=== PATIENT | female | born 1970 | race Caucasian/White ===

== ENCOUNTER 2019-10-06 08:08 | Emergency (ER) | payer OTHER, SELFPAY ==
--- NOTE | 2019-10-06 08:13 | ED.GENADULT ---
HPI - General Adult General Stated complaint: Fever/Cough/Sore throat Time Seen by Provider: 10/06/19 08:23 Source: patient and RN notes reviewed Mode of arrival: ambulatory Limitations: no limitations History of Present Illness HPI narrative: This patient had onset 2 days ago on , 10/04/2019 of a cough productive of green phlegm without chest pain or shortness of breath. She is only had a sore throat whenever she coughs otherwise is not painful. Does not hurt to swallow. Her maximum temperature is been 1-1.5 this been successfully treated with Tylenol and ibuprofen. She is used OTC cough medicine which helps a little with the cough. She has not had any ear pain or drainage from the ears. She is had no nasal drainage. She is had no rashes. She has had no nausea, no vomiting, no diarrhea. She has had no hematuria, no dysuria, no pyuria. She is not a cigarette smoker and has no history of asthma. She has had no known exposure to anyone with strep throat, mono, influenza, bronchitis, pneumonia that she is aware of. She has not been traveling. Related Data Home Medications Medication Instructions Recorded Confirmed levothyroxine 50 mcg PO DAILY 10/06/19 10/06/19 metformin 1,000 mg PO DAILY 10/06/19 10/06/19 Allergies Allergy/AdvReac Type Severity Reaction Status Date / Time No Known Allergies Allergy Unverified 12/08/18 18:12 Review of Systems Review of Systems: Narrative: CONSTITUTIONAL: Denies fever, chills, or sweats. Noncontributory except as pertains to the past medical history and history of present illness. EYES: Denies visual changes, redness, or discharge. ENT: Denies rhinorrhea, congestion, sore throat, or otalgia. CARDIOVASCULAR: Denies chest pain, palpitations, or edema. RESPIRATORY: Denies cough or dyspnea. GASTROINTESTINAL: Denies abdominal pain, nausea, vomiting, or diarrhea. GENITOURINARY: Denies dysuria or hematuria. SKIN: Denies rash or itching. MUSCULOSKELETAL: Denies back pain, joint pain, or myalgia. NEUROLOGIC: Denies headache, numbness, or weakness. PSYCHIATRIC: Denies anxiety or depression. [facility] At time of signature, I have reviewed and agree with nursing past medical, surgical, social, and family history.Please see nursing chart for further information. There is no relevant family history pertinent to the presenting complaint. Exam Narrative: Exam Narrative: GENERAL: Well-appearing, well-nourished, and in no acute distress. HEAD: Normocephalic, atraumatic. EYES: PERRLA and EOMI. EARS: TM's clear bilaterally and the canals are clear. NOSE: Nares clear, no rhinorrhea or epistaxis. THROAT:Mucous membranes moist.Oropharynx is nonerythematous and the patient has no exudates. NECK: Supple. No adenopathy of the neck, supraclavicular, axillary, or inguinal areas. RESPIRATORY: No respiratory distress. Airway patent. Respirations non-labored. The lungs have rhonchi in the upper and mid lung arellano, but not the bases. There are no wheezes, no rales, no retractions, and no use of accessory muscles of respirations. The patient is not cyanotic and not dyspneic. She has a loose, wet cough during the exam. Pulse ox on room air is 99% current temperature is 99.3. HEART: Regular rate and rhythm. No murmur heard. Normal peripheral pulses. ABDOMEN: Soft, nontender, nondistended, normal active bowel sounds.No masses. No rebound or guarding, No organomegaly. No CVA pain. No pain McBurney's point. Patient has a negative Koch sign and negative Rovsing sign. There are no pulsatile masses no audible bruits. EXTREMITIES: No clubbing/cyanosis/ edema. Normal strength & range of motion. SKIN: Warm, dry.Normal color. No rash or lesions. Patient is well-nourished well-hydrated has moist mucous membranes and no tenting of the skin. NEURO: Alert and oriented. CN 2-12 grossly intact. No focal deficits. PSYCH: Normal mood and affect. Course Vital Signs Vital signs: Afebrile and the other vital signs are n
[2019-10-06 08:15] VITALS: BP 123/74; PULSE 88; RESP 20; TEMP 37.4; O2SAT 99
== END 2019-10-06 08:38 | disposition home or self-care (01) ==
PROVIDERS: Emergency Provider Family Medicine
DX: J40 Bronchitis, not specified as acute or chronic (principal); E78.00 Pure hypercholesterolemia, unspecified; E11.9 Type 2 diabetes mellitus without complications; E03.9 Hypothyroidism, unspecified
CPT/HCPCS: 99213; G0463

== ENCOUNTER 2024-03-27 16:34 | Emergency (ER) | payer BC, SELFPAY ==
--- NOTE | 2024-03-27 16:37 | ED.URI ---
HPI - URI/Sore Throat General Chief Complaint: Upper Respiratory Infection Stated Complaint: throat/congestion/chest tight Time Seen by Provider: 03/27/24 17:15 Source: patient and RN notes reviewed Mode of arrival: ambulatory Limitations: no limitations History of Present Illness HPI Narrative: 53-year-old female presents with concern of 5 day history of sore throat, chest congestion, cough, chest tightness. She reports she has been taking Mucinex. She denies fever, body aches, chills, sweats. She had a negative COVID test at home MD elicited complaint: cough and sore throat Related Data Home Medications Medication Instructions Recorded Confirmed escitalopram oxalate 10 mg tablet 10 mg PO DAILY 03/27/24 03/27/24 levothyroxine 50 mcg tablet 50 mcg PO DAILY 03/27/24 03/27/24 metformin 1,000 mg tablet 1,000 mg PO BID 03/27/24 03/27/24 semaglutide 14 mg tablet (Rybelsus) 1 mg PO DAILY 03/27/24 03/27/24 simvastatin 40 mg tablet 40 mg PO DAILY 03/27/24 03/27/24 Allergies Allergy/AdvReac Type Severity Reaction Status Date / Time No Known Allergies Allergy Unverified 03/27/24 16:56 Review of Systems Review of Systems: CONSTITUTIONAL: Denies malaise, chills, sweats, or fever. EYES: Denies visual changes, redness, or discharge. ENT: Reports rhinorrhea, congestion, otalgia and sore throat. CARDIOVASCULAR: Denies chest pain, palpitations, or edema. RESPIRATORY: Reports cough. Denies dyspnea. GASTROINTESTINAL: Denies abdominal pain, nausea, vomiting, diarrhea SKIN: Denies rash or itching. MUSCULOSKELETAL: Denies myalgia. NEUROLOGIC: Denies headache. All systems reviewed & are unremarkable except as noted in HPI and below [facility] Comments At time of signature, agree with nursing past medical, surgical, social and family history. There is no relevant family history pertinent to the presenting complaint Exam Narrative: GENERAL: Well-appearing, well-nourished, and in no acute distress. HEAD: Normocephalic EYES: PERRLA, conjunctivae clear ENT: Nares clear, turbinates edematous and erythematous, clear discharge. Mucous membranes moist. TM pearly carlos with dull light reflex on the right, erythematous and bulging on the left; no tragal tenderness. Oropharynx not erythematous without lesions. Tonsils not enlarged and without exudate, no drooling, no hoarseness, no trismus, uvula midline. NECK: Supple. No lymphadenopathy CHEST: Clear to auscultation, breath sounds equal. No wheezing, rhonchi, rales, or stridor. No respiratory distress, speaks in full sentences. Cough noted HEART: Regular rate and rhythm. No murmur heard. SKIN: Warm, dry, no rash. NEURO: Alert and oriented x3. PSYCH: Normal mood and affect Course Course Emergency Course: Patient is aware of diagnosis, understands and agrees to treatment plan. Anticipatory guidance given. Patient agrees to follow-up as directed and is aware of reasons to seek care at the emergency department. Portions of this record may have been created with voice recognition software Level of Care: Express Care Visit Vital Signs Vital signs: Reviewed. MDM - URI/Sore Throat MDM Narrative Medical decision making narrative: Differential diagnosis considered: Palmer virus, strep pharyngitis, allergic rhinitis, upper respiratory tract infection, sinusitis, rhinosinusitis, nasopharyngitis. viral pharyngitis, otitis media, otitis externa, pneumonia, bronchitis, viral cough syndrome, viral syndrome, and influenza. Exam findings show no acute concerns or changes; patient is non-toxic appearing and is in no distress. Patient is appropriate for outpatient treatment and follow-up. Lab Data Attestation: I reviewed the patient's lab results. Critical Care Time Critical Care Time Critical Care Time: No Discharge Plan Discharge Clinical Impression: Otitis media, Cough Patient Disposition: Home, Self-Care Condition: Stable Instructions: Antibiotic Form, Ear Infection (ED), Acute Coug
[2024-03-27 16:52] VITALS: BP 142/90; PULSE 97; RESP 20; TEMP 36.9; O2SAT 100
[2024-03-27 17:16] LABS: EDSTREPNEGPOS1 Presumptive Negative
== END 2024-03-27 17:25 | disposition home or self-care (01) ==
PROVIDERS: Emergency Provider Nurse Practitioner; PCP Internal Medicine
DX: H60.92 Unspecified otitis externa, left ear (principal); H66.92 Otitis media, unspecified, left ear; R05.9 Cough, unspecified; E78.00 Pure hypercholesterolemia, unspecified; E11.9 Type 2 diabetes mellitus without complications; E03.9 Hypothyroidism, unspecified
CPT/HCPCS: 87081; 87880; 99213; G0463